=== PATIENT | male | born 1945 | race Caucasian/White ===

== ENCOUNTER 2016-06-29 13:39 | Outpatient (CLI) | payer BC, MEDICARE ==
[~2016-06-29 13:39] MED LIST: CEFTIN500 MG PO; FLEXERIL10 MG PO; FOSAMAX 70MG TA70 MG PO; GERD med; HTN med; LORTAB 5/500 501 TAB PO; MONODOX100 PO; MULTIPLE VITAMI1 CAP PO; NORCO 325 MG-51 TAB PO; NS 1000 10001000 ML IV; NS INT FLUSH 1010 ML IV; PERCOCET 325 MG1 TA2 PO; PERCOCET 5/321 UDTAB PO; PRILOSEC 20MG20 MG PO; TIAZAC120 MG PO; TYLENOL 325MG325 MG PO; VALIUM 5MG T5 MG/TAB PO; VIT C; VIT D; ZOFRAN 4MG T4 MG/TAB PO
[2016-06-29 14:10] VITALS: BP 146/73; PULSE 82; TEMP 98.8
[2016-06-29] MEDS ORDERED: ZOVIRAX800 MG PO (14:53)
[2016-06-29] MEDS ORDERED: CLARITIN 1010 MG/TAB PO (14:54)
[2016-06-29] MEDS ORDERED: BACTRIM DS 8001 TAB PO (14:54)
[2016-06-29] MEDS ORDERED: TEMOVATE0.05% TP (14:56)
[2016-06-29] MEDS ORDERED: CATAPRES0.2 MG PO (14:57)
[2016-06-29] MEDS ORDERED: VITAMIN D1000 IU PO (14:58)
[2016-06-29] MEDS ORDERED: FLONASE NASAL S16 GM NS (14:59)
[2016-06-29] MEDS ORDERED: LASIX 40MG TABL40 MG PO (15:00)
[2016-06-29] MEDS ORDERED: MAG-OX 400400 MG/TAB PO (15:01)
[2016-06-29] MEDS ORDERED: NOVOLOG FLEX100 U/ML SQ (15:03)
[2016-06-29] MEDS ORDERED: NOXAFILTAB PO (15:03)
[2016-06-29] MEDS ORDERED: PRAVACHOL 40MG40 MG PO (15:06)
[2016-06-29] MEDS ORDERED: MICRO-K 10 EXT10 MEQ PO (15:06)
[2016-06-29] MEDS ORDERED: PREDNISONE10 MG PO (15:07)
[2016-06-29] MEDS ORDERED: RAPAMUNE1 MG PO (15:08)
== END 2016-06-29 16:11 | disposition home or self-care (01) ==
LOC: EUO 13:39
DX: C93.01 Acute monoblastic/monocytic leukemia, in remission (principal)

== ENCOUNTER → 2016-07-01 | Outpatient (CLI) | payer BC, MEDICARE ==
[~2016-07-01] MED LIST changes: +BACTRIM DS 8001 TAB PO; +CATAPRES0.2 MG PO; +CLARITIN 1010 MG/TAB PO; +FLONASE NASAL S16 GM NS; +LASIX 40MG TABL40 MG PO; +MAG-OX 400400 MG/TAB PO; +MICRO-K 10 EXT10 MEQ PO; +NOVOLOG FLEX100 U/ML SQ; +NOXAFILTAB PO; +PRAVACHOL 40MG40 MG PO; +PREDNISONE10 MG PO; +RAPAMUNE1 MG PO; +TEMOVATE0.05% TP; +VITAMIN D1000 IU PO; +ZOVIRAX800 MG PO
== END ==
LOC: COL.PUL 06-29 14:00
DX: C93.01 Acute monoblastic/monocytic leukemia, in remission (principal); Z94.81 Bone marrow transplant status; R94.2 Abnormal results of pulmonary function studies

== ENCOUNTER 2017-04-22 11:45 | Emergency (ER) | payer BC ==
[~2017-04-22] VITALS: Ht 175.3 cm; Wt 97.7 kg
[2017-04-22 11:55] VITALS: BP 175/79; TEMP 98.4
[2017-04-22 12:54] LABS: BASO % 0.5 % (0.0-2.0); EOS # 0.2 (0.0-0.7); EOS % 3.8 % (0-4.0); GRAN % 72.3 % (42.2-75.2); LYMPH # 0.6 (1.2-3.4); LYMPH % 10.3 % (20.0-51.0); MEAN CELL VOLUME 93 fl (80.0-100.0); MEAN CORPUSCULAR HGB CONC 33 g/dl (33.0-37.0); MEAN PLATELET VOLUME 9.3 fl (7.4-10.4); MONO # 0.7 (0.1-0.6); MONO % 12.7 % (1.7-9.3); PLATELET COUNT 194 K/mm3 (130-400); RED BLOOD COUNT 3.91 M/mm3 (4.20-5.60); WHITE BLOOD COUNT 5.5 K/mm3 (4.8-10.8)
[2017-04-22 12:56] LABS: HEMATOCRIT 36.3 % (42.0-52.0); HEMOGLOBIN 11.8 g/dl (13.5-18.0); MEAN CORPUSCULAR HEMOGLOBIN 30 pg (27.0-31.0)
[2017-04-22 13:32] LABS: ADJUSTED CALCIUM 8.6 mg/dL (8.4-10.2); ALBUMIN 4.6 gm/dL (3.5-5.0); BILIRUBIN,TOTAL 0.5 mg/dL (0.0-1.0); C-REACTIVE PROTEIN 1.6 mg/dL (0.0-0.9); CALCIUM 9.1 mg/dL (8.4-10.2); CREATININE, serum 1.51 mg/dL (0.66-1.25); POTASSIUM 3.5 mmol/L (3.4-5.0); TOTAL PROTEIN 7.1 gm/dL (6.4-8.2)
[2017-04-22 15:54] VITALS: PULSE 86
[2017-04-22 15:58] LABS: COLLECTION METHOD CLEAN CATCH
[2017-04-22 16:14] LABS: GRANULAR CAST >12 /lpf; MUCOUS Present /lpf; PH 5 (5-8); SQUAMOUS EPITHELIAL 0-2 /hpf; URINE APPEARANCE Hazy; URINE BACTERIA Rare /hpf; URINE BILIRUBIN Negative (NEGATIVE); URINE BLOOD 2+ (NEGATIVE); URINE COLOR Yellow; URINE GLUCOSE Negative (NEGATIVE); URINE KETONE Trace (NEGATIVE); URINE LEUKOCYTE ESTERASE Negative (NEGATIVE); URINE PROTEIN(semi-quant) 2+ (NEGATIVE); URINE RBC None Seen /hpf; URINE UROBILINOGEN Negative (NEGATIVE); URINE WBC None Seen /hpf
== END 2017-04-22 15:56 | disposition home or self-care (01) ==
LOC: COL.ER 11:45
PROVIDERS: Emergency Medicine; Physician Assistant
DX: R19.7 Diarrhea, unspecified (principal); I10 Essential (primary) hypertension; K21.9 Gastro-esophageal reflux disease without esophagitis; Z87.442 Personal history of urinary calculi; Z85.46 Personal history of malignant neoplasm of prostate; Z79.4 Long term (current) use of insulin
CPT/HCPCS: J2405; J7030

== ENCOUNTER → 2017-04-23 | Outpatient (CLI) | payer BC | LOC: COL.LAB 15:49 | DX: B96.89 Other specified bacterial agents as the cause of diseases classified elsewhere (principal) ==

== ENCOUNTER 2017-04-28 13:28 | Emergency (ER) | payer BC ==
[~2017-04-28] VITALS: Ht 175.3 cm; Wt 91.8 kg
[2017-04-28 13:30] VITALS: BP 130/62; TEMP 98.8
[2017-04-28 14:05] LABS: BASO % 0.5 % (0.0-2.0); EOS # 0.2 (0.0-0.7); EOS % 3.3 % (0-4.0); GRAN # 4.9 (1.4-6.5); GRAN % 76.6 % (42.2-75.2); LYMPH # 0.6 (1.2-3.4); LYMPH % 9.6 % (20.0-51.0); MEAN CELL VOLUME 92 fl (80.0-100.0); MEAN CORPUSCULAR HGB CONC 33 g/dl (33.0-37.0); MEAN PLATELET VOLUME 9.1 fl (7.4-10.4); MONO # 0.6 (0.1-0.6); MONO % 9.8 % (1.7-9.3); PLATELET COUNT 201 K/mm3 (130-400); RED BLOOD COUNT 3.84 M/mm3 (4.20-5.60); WHITE BLOOD COUNT 6.4 K/mm3 (4.8-10.8)
[2017-04-28 14:07] LABS: HEMATOCRIT 35.5 % (42.0-52.0); HEMOGLOBIN 11.6 g/dl (13.5-18.0); MEAN CORPUSCULAR HEMOGLOBIN 30 pg (27.0-31.0)
[2017-04-28 14:14] LABS: CALCIUM 9.9 mg/dL (8.4-10.2); CREATININE, serum 1.37 mg/dL (0.66-1.25)
[2017-04-28 15:35] VITALS: PULSE 91
== END 2017-04-28 15:30 | disposition home or self-care (01) ==
LOC: COL.ER 13:28
PROVIDERS: Emergency Medicine
DX: R19.7 Diarrhea, unspecified (principal); I10 Essential (primary) hypertension; K21.9 Gastro-esophageal reflux disease without esophagitis; Z87.442 Personal history of urinary calculi; Z85.46 Personal history of malignant neoplasm of prostate; Z79.4 Long term (current) use of insulin

== ENCOUNTER 2017-06-20 09:31 | Inpatient (IN) | payer BC ==
[~2017-06-20] VITALS: Ht 177.8 cm; Wt 97.7 kg
[2017-06-20] VITALS (231 sets, daily range): BP systolic 143–152; BP diastolic 79–90; PULSE 79–92; TEMP 96.3–98.4; O2SAT 86–100
[~2017-06-20 09:31] MED LIST changes: -RAPAMUNE1 MG PO; +RAPAMUNE1 MG/1 ML PO
[2017-06-20 10:50] LABS: BASO % 0.2 % (0.0-2.0); EOS % 0.5 % (0-4.0); GRAN # 3.4 (1.4-6.5); LYMPH # 0.5 (1.2-3.4); LYMPH % 11.1 % (20.0-51.0); MEAN CELL VOLUME 91 fl (80.0-100.0); MEAN CORPUSCULAR HGB CONC 33 g/dl (33.0-37.0); MEAN PLATELET VOLUME 9.1 fl (7.4-10.4); MONO # 0.4 (0.1-0.6); PLATELET COUNT 105 K/mm3 (130-400); RED BLOOD COUNT 3.54 M/mm3 (4.20-5.60); REDCELL DISTRIBUTION WIDTH-CV 15.9 % (11.5-14.5)
[2017-06-20 10:58] LABS: HEMATOCRIT 32.1 % (42.0-52.0); HEMOGLOBIN 10.7 g/dl (13.5-18.0); INR 1.1 (0.8-3.0); MEAN CORPUSCULAR HEMOGLOBIN 30 pg (27.0-31.0); PROTHROMBIN TIME 12.7 SECONDS (9.7-12.8)
[2017-06-20 11:00] LABS: ALBUMIN 3.3 gm/dL (3.5-5.0); BILIRUBIN,TOTAL 0.5 mg/dL (0.0-1.0); CREATININE, serum 1.5 mg/dL (0.66-1.25); POTASSIUM 3.5 mmol/L (3.4-5.0)
[2017-06-20 11:01] LABS: PARTIAL THROMBOPLASTIN TIME 38.2 SECONDS (26.0-37.0)
[2017-06-20 11:14] LABS: TROPONIN-I 0.069 ng/mL (0.000-0.034)
[2017-06-20 12:01] LABS: COLLECTION METHOD CLEAN CATCH
[2017-06-20 12:06] LABS: MUCOUS Present /lpf; PH 5 (5-8); SQUAMOUS EPITHELIAL 0-2 /hpf; URINE APPEARANCE Hazy; URINE BACTERIA None Seen /hpf; URINE BILIRUBIN Negative (NEGATIVE); URINE BLOOD 1+ (NEGATIVE); URINE COLOR Yellow; URINE GLUCOSE Negative (NEGATIVE); URINE KETONE Trace (NEGATIVE); URINE LEUKOCYTE ESTERASE Negative (NEGATIVE); URINE NITRATE Negative (NEGATIVE); URINE PROTEIN(semi-quant) 3+ (NEGATIVE); URINE RBC 0-2 /hpf; URINE UROBILINOGEN Negative (NEGATIVE)
[2017-06-20] MEDS ORDERED: ENTOCORT EC3 MG PO (19:07)
[2017-06-20] MEDS ORDERED: TRICOR 48MG48 MG PO (19:14)
[2017-06-20] MEDS ORDERED: BACTRIM 400 MG-1 TAB PO (19:18)
[2017-06-20] MEDS ORDERED: BACTRIM DS 8001 TAB PO (19:21)
[2017-06-21] VITALS: BP 139/67; PULSE 67; TEMP 98
[2017-06-21 03:25] VITALS: BP 133/73; PULSE 64; TEMP 97.5
[2017-06-21 05:42] LABS: MEAN CELL VOLUME 92 fl (80.0-100.0); MEAN CORPUSCULAR HGB CONC 33 g/dl (33.0-37.0); PLATELET COUNT 92 K/mm3 (130-400); RED BLOOD COUNT 3.32 M/mm3 (4.20-5.60); REDCELL DISTRIBUTION WIDTH-CV 15.9 % (11.5-14.5)
[2017-06-21 05:59] LABS: HEMATOCRIT 30.6 % (42.0-52.0); HEMOGLOBIN 10.1 g/dl (13.5-18.0); MEAN CORPUSCULAR HEMOGLOBIN 30 pg (27.0-31.0)
[2017-06-21 06:02] LABS: CALCIUM 8.5 mg/dL (8.4-10.2); CREATININE, serum 1.17 mg/dL (0.66-1.25); MAGNESIUM 1.7 mg/dL (1.6-2.3); POTASSIUM 3.7 mmol/L (3.4-5.0)
[2017-06-21 07:24] LABS: BAND 9 % (0-10); HYPOCHROMIA 1+; LYMPHOCYTE 6 % (20.0-51.0); NEUTROPHILS 77 % (42.0-75.2); PLATELET ESTIMATE DECREASED (NORMAL)
[2017-06-21 08:00] VITALS: BP 148/79; PULSE 84; TEMP 98.9
[2017-06-21 10:48] VITALS: BP 126/66; PULSE 84; TEMP 97.6
[2017-06-21 14:45] VITALS: BP 140/7; BP 140/70; PULSE 79; TEMP 967.8
[2017-06-21 21:43] VITALS: BP 160/66; PULSE 17; TEMP 98.8
[2017-06-22] VITALS (10 sets, daily range): BP systolic 135–158; BP diastolic 63–91; PULSE 72–129; TEMP 97.6–98.7
[2017-06-22 07:22] LABS: CALCIUM 7.9 mg/dL (8.4-10.2); CREATININE, serum 1.14 mg/dL (0.66-1.25); MAGNESIUM 1.8 mg/dL (1.6-2.3); POTASSIUM 3.3 mmol/L (3.4-5.0)
[2017-06-22 07:23] LABS: HEMATOCRIT 30.4 % (42.0-52.0); MEAN CELL VOLUME 93 fl (80.0-100.0); MEAN CORPUSCULAR HEMOGLOBIN 31 pg (27.0-31.0); MEAN CORPUSCULAR HGB CONC 33 g/dl (33.0-37.0); PLATELET COUNT 111 K/mm3 (130-400); RED BLOOD COUNT 3.27 M/mm3 (4.20-5.60); REDCELL DISTRIBUTION WIDTH-CV 16.3 % (11.5-14.5); TROPONIN-I 0.015 ng/mL (0.000-0.034)
[2017-06-22 09:54] LABS: ANISOCYTOSIS 1+; BAND 12 % (0-10); LYMPHOCYTE 5 % (20.0-51.0); NEUTROPHILS 81 % (42.0-75.2); PLATELET ESTIMATE DECREASED (NORMAL)
[2017-06-22] MEDS ORDERED: BACTRIM 400 MG-1 TAB PO (17:18)
[2017-06-22] MEDS ORDERED: TAMIFLU 75MG75 MG PO (17:22)
[2017-06-22] MEDS ORDERED: LOPRESSOR 225 MG/TAB PO (17:24)
[2017-06-22] MEDS ORDERED: ASPIRIN 32325 MG/TAB PO (17:25)
== END 2017-06-22 19:42 | disposition home or self-care (01) | DRG 193 ==
LOC: COL.ER 09:31 → MEDICAL 11:42 → ICU 11:42 → MEDICAL 06-21 10:10 → ICU 06-21 10:10 → MEDICAL 06-21 10:10
PROVIDERS: Emergency Medicine; Internal Medicine
DX: J10.1 Influenza due to other identified influenza virus with other respiratory manifestations (principal); I21.A1 Myocardial infarction type 2; C92.01 Acute myeloblastic leukemia, in remission; Z94.81 Bone marrow transplant status; I12.9 Hypertensive chronic kidney disease with stage 1 through stage 4 chronic kidney disease, or unspecified chronic kidney disease; N18.9 Chronic kidney disease, unspecified; Z85.46 Personal history of malignant neoplasm of prostate; E87.6 Hypokalemia; R73.9 Hyperglycemia, unspecified
CPT/HCPCS: 99223-AI; 99232-AI; 99239; A9502; J0456; J0696; J1650; J1720; J2785; J3475; J7030; J7050; J7512